=== PATIENT | male | born 1995 | race Caucasian/White ===

== ENCOUNTER 2020-01-21 22:05 | Emergency (ER) | payer MEDICAID ==
[~2020-01-21] VITALS: Ht 167.6 cm; Wt 80.7 kg
[2020-01-21 22:11] VITALS: Ht 167.6 cm; Wt 80.7 kg
[2020-01-22 01:29] VITALS: BP 104/54
== END 2020-01-22 01:28 | disposition home or self-care (01) ==
LOC: ED 22:05
DX: T78.2XXA Anaphylactic shock, unspecified, initial encounter (principal); T78.1XXA Other adverse food reactions, not elsewhere classified, initial encounter; R13.10 Dysphagia, unspecified; Y92.89 Other specified places as the place of occurrence of the external cause
CPT/HCPCS: J0171; J1200; J2930; J3490; J7030